=== PATIENT | male | born 1965 | race Caucasian/White ===

== ENCOUNTER 2020-09-06 14:04 | Inpatient (IN) | payer MEDICAID ==
[~2020-09-06] VITALS: Ht 177.8 cm; Wt 84.0 kg
--- NOTE | 2020-09-06 14:30 | NUR ---
MARTHA DORADO, PT IN [facility] WITH 90YR MOTHER WHO IS NO LONGER ABLE TO MEDICATE THE PT. MOTHER CALLED HOSPICE TEAM TODAY TO MEDICATED PT, PT WAS GIVEN 40MG MSO4 AND 2MG ATIVAN. PT BECOME DISLODGED FROM HOME O2 AND WENT INTO RESP DISTRESS, HOSPICE CALLED AVE, O2 REPLACED AND PT SATING 98% ON BASELINE O2. HOSPICE STILL WANTED PT TRANSPORTED TO HOSPITAL D/T IMPENDING BECAUSE HIS MOTHER CANNOT MEDICATE HIM. PT TO ALL MONITORS
--- NOTE | 2020-09-06 14:46 | NUR ---
PT VERY SEDATED, ABLE TO ARROUSE, PT DOES ANSWER SOME QUESTIONS. WILL CONTINUE TO MONTIOR
--- NOTE | 2020-09-06 15:20 | NUR ---
SPOKE WITH ERP, PT TO BE ADMIT FOR FTT, NO LABS/PIV ORDERED.
[2020-09-06] MEDS ORDERED: LORA2ORA7 PO (15:36)
[2020-09-06] MEDS ORDERED: LOSA25TA25 PO (15:36)
[2020-09-06] MEDS ORDERED: MORP1SYR2 PO (15:36)
[2020-09-06] MEDS ORDERED: LEVE500T54 PO (15:36)
--- NOTE | 2020-09-06 16:00 | NUR ---
MEDS WALKED TO PHARMACY, INCLUDING ATIVAN/MORPHINE BOTTLES. MED SLIP PLACED ON CHART.
[2020-09-06] MEDS ORDERED: ATROPINE OPHTH SOLN 1%, 5ML PO PRN (17:00)
[2020-09-06] MEDS ORDERED: SCOPOLAMINE 1MG PATCH TD PRN (17:00)
[2020-09-06] MEDS ORDERED: MORPHINE 30MG/30ML PCA.SYR IV PRN (17:00)
[2020-09-06] MEDS ORDERED: LORazepam 2 MG/ML, 1ML IVPush PRN (17:00)
--- NOTE | 2020-09-06 17:38 | NUR ---
REPORT TO RECIEVING RN, AWIATING TRASPORT
[2020-09-06] MEDS ORDERED: PLEASE ENTER ALLERGIES MC SCH (18:00)
[2020-09-06 18:35] VITALS: BP 137/93
[2020-09-06] MEDS: morphine SULFATE 10 MG/ML, 1ML IVPush PRN ×2 (22:53→23:13)
[2020-09-07 07:01] VITALS: BP 121/83
[2020-09-07] MEDS: morphine SULFATE 10 MG/ML, 1ML IVPush PRN ×2 (08:26→21:27)
[2020-09-07] MEDS: LEVETIRACETAM 500 MG TABLET PO SCH (21:26)
[2020-09-08] MEDS: LEVETIRACETAM 500 MG TABLET PO SCH ×2 (09:34→21:44)
[2020-09-08] MEDS: morphine SULFATE 10 MG/ML, 1ML IVPush PRN ×2 (09:46→16:41)
[2020-09-09] MEDS: morphine SULFATE 10 MG/ML, 1ML IVPush PRN ×4 (04:47→20:14)
[2020-09-09] MEDS: LEVETIRACETAM 500 MG TABLET PO SCH ×2 (08:32→20:08)
[2020-09-09] MEDS: ONDANSETRON 2MG/ML, 2ML IVPush PRN ×2 (12:27→20:13)
[2020-09-09] MEDS: BENZONATATE 100 MG CAPSULE PO PRN (16:14)
[2020-09-10] MEDS: BENZONATATE 100 MG CAPSULE PO PRN (00:47)
[2020-09-10] MEDS: morphine SULFATE 10 MG/ML, 1ML IVPush PRN ×3 (00:54→19:41)
[2020-09-10] MEDS: ONDANSETRON 2MG/ML, 2ML IVPush PRN ×2 (00:54→19:41)
[2020-09-10] MEDS: LEVETIRACETAM 500 MG TABLET PO SCH ×2 (08:46→21:00)
[2020-09-11] MEDS: morphine SULFATE 10 MG/ML, 1ML IVPush PRN ×4 (02:03→23:00)
[2020-09-11] MEDS: ONDANSETRON 2MG/ML, 2ML IVPush PRN (02:03)
[2020-09-11] MEDS: BENZONATATE 100 MG CAPSULE PO PRN (02:08)
[2020-09-11] MEDS: LEVETIRACETAM 500 MG TABLET PO SCH ×2 (09:11→21:59)
[2020-09-11] MEDS ORDERED: MORPHINE SULFATE 4 MG/ML, 1ML ONE (22:56)
[2020-09-12] MEDS ORDERED: MORPHINE SULFATE 4 MG/ML, 1ML ONE (04:57)
[2020-09-12] MEDS: morphine SULFATE 10 MG/ML, 1ML IVPush PRN ×3 (04:59→13:53)
[2020-09-12] MEDS ORDERED: CARVEDILOL 3.125 MG TABLET PO SCH (07:30)
[2020-09-12] MEDS ORDERED: HEPARIN 5,000 UNITS/ML, 1ML IV PRN (08:00)
[2020-09-12] MEDS ORDERED: HEPARIN 5,000 UNITS/ML, 1ML IV ONE (08:00)
[2020-09-12] MEDS ORDERED: HEPARIN 25,000 UNITS/250ML PMX 250 ML IV PRN (08:00)
[2020-09-12] MEDS: LEVETIRACETAM 500 MG TABLET PO SCH (08:15)
[2020-09-12] MEDS ORDERED: LISINOPRIL 5 MG TABLET PO SCH (09:00)
== END 2020-09-12 15:42 | disposition home or self-care (01) | DRG 133 ==
LOC: ED 15:54 → EDIP 16:09 → 4NW 18:06
PROVIDERS: ADMIT Internal Medicine; ATTEND Internal Medicine
DX: J96.01 Acute respiratory failure with hypoxia (principal); G40.909 Epilepsy, unspecified, not intractable, without status epilepticus; I11.0 Hypertensive heart disease with heart failure; I07.1 Rheumatic tricuspid insufficiency; I25.10 Atherosclerotic heart disease of native coronary artery without angina pectoris; I25.5 Ischemic cardiomyopathy; I27.20 Pulmonary hypertension, unspecified; I50.22 Chronic systolic (congestive) heart failure; I50.84 End stage heart failure; R62.7 Adult failure to thrive; F41.9 Anxiety disorder, unspecified; Z51.5 Encounter for palliative care; G89.29 Other chronic pain; Z86.73 Personal history of transient ischemic attack (TIA), and cerebral infarction without residual deficits; Z79.899 Other long term (current) drug therapy
CPT/HCPCS: 93005; 93306; 93356; 99285; G0378; J2405; J2270

== ENCOUNTER 2020-09-13 10:34 | Emergency (ER) | payer MEDICAID ==
[~2020-09-13] VITALS: Ht 175.3 cm; Wt 80.0 kg
[~2020-09-13 10:34] MED LIST: LEVE500T54 PO; LORA2ORA7 PO; LOSA25TA25 PO; MORP1SYR2 PO
--- NOTE | 2020-09-13 11:40 | NUR ---
PT PRESENTS TO ED WITH C/O DIFFIUSE CHEST PAIN, SHARP IN NATURE ONSET 30 MIN PRIOR TO ARRIVAL. PT STATES CHEST PAIN HAS DECREASED DRASTICALLY SINCE ARRIVAL. EKG TAKEN IN TRIAGE ON ARRIVAL, REVIEWED BY PERCY AVELAR. PT IS ON ALL MONITORS, NSR ON METAL CONTROL COORDINATOR. PT'S ONLY COMPLAINT AT THIS TIME IS THIRST, WATER PROVIDED WITH MD ACOSTA. HOSPICE TEAM TO CONSULT PRIOR TO DC PT IS ATTEMPTING TO SET HIMSELF UP FOR HOSPICE OUTPATIENT. CALL LIGHT IN REACH. AWAITING HOSPICE TEAM AND DISPO.
--- NOTE | 2020-09-13 12:21 | NUR ---
hospice team contacted, RN to arrive for consult in 15 min.
[2020-09-13] MEDS ORDERED: ONDANSETRON ODT 4 MG ONE (13:15)
[2020-09-13 13:18] VITALS: BP 136/91
--- NOTE | 2020-09-13 13:20 | NUR ---
pt nauseated, notified. pt medicated per emar with zofran. pt tolerated well. pt has spoken to social services counselor.
[2020-09-13] MEDS ORDERED: ONDANSETRON ODT 4 MG PO ONE (13:30)
--- NOTE | 2020-09-13 13:54 | NUR ---
pt provided with meal, tolerating POs well with no n/v. pt has no complaint at dc. pt given dc instructions and script, educated regarding rx for nitroglycerin. pt a&o, resps even and unlabored, nsr on monitoring engineer with no ectopy. pt ambulatory with steady gait, unassisted, given wc escort to dc. per electrical power station technician, hospice will be arranged. pt contact and place of residence confirmed with electrical power station technician. pt's friend Yane is pt's requested point of contact, friend called per pt request to collect pt and drive home. Yane confirms she will be driving pt home shortly.
== END 2020-09-13 13:55 | disposition home or self-care (01) ==
LOC: ED 11:21
DX: I20.9 Angina pectoris, unspecified (principal); R07.2 Precordial pain; I25.5 Ischemic cardiomyopathy; R07.89 Other chest pain; I10 Essential (primary) hypertension; R94.31 Abnormal electrocardiogram [ECG] [EKG]
CPT/HCPCS: 93005; 99283; Q0162